=== PATIENT | female | born 2000 | race Caucasian/White ===

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

== ENCOUNTER → 2022-01-05 | Outpatient (CLI) | payer OTHER | END | disposition home or self-care (01) | LOC: CARD 01-04 09:30 | PROVIDERS: ATTEND Internal Medicine Cardiovascular Disease | DX: R01.1 Cardiac murmur, unspecified (principal); R06.00 Dyspnea, unspecified ==

== ENCOUNTER → 2024-01-18 | Outpatient (CLI) | payer OTHER ==
[2024-01-18 18:30] LABS: FREE T4 1.08 ng/dl (0.89-1.76); THYROXINE (T4) TOTAL 8.2 ug/dl (4.5-10.9)
== END | disposition home or self-care (01) ==
LOC: LAB 17:36
PROVIDERS: ATTEND Internal Medicine Endocrinology, Diabetes & Metabolism
DX: R63.4 Abnormal weight loss (principal)

== ENCOUNTER 2024-02-10 12:00 | Emergency (ER) | payer OTHER ==
[~2024-02-10] VITALS: Ht 160 cm; Wt 42.2 kg
[2024-02-10 12:51] LABS: BASO # 0.1 10*3/uL (0.0-0.1); BASO % 0.6 % (0.0-1.0); EOS # 0.1 10*3/uL (0.0-0.4); EOS % 0.9 % (1.0-4.0); HEMATOCRIT 41.1 % (37.0-47.0); LYMPH # 1.9 10*3/uL (1.3-4.4); LYMPH % 18.2 % (27.0-41.0); MEAN CORPUSCULAR HGB 31.3 pg (27.0-31.0); MEAN CORPUSCULAR HGB CONC 32.6 g/dl (33.0-37.0); MEAN PLATELET VOLUME 9.9 fl (9.6-12.3); MONO # 0.6 10*3/uL (0.1-1.0); MONO % 5.7 % (3.0-9.0); NEUT # 7.9 10*3/uL (2.3-7.9); NEUT % 74.4 % (47.0-73.0); PLATELET COUNT AUTOMATED 284 10*3/uL (130-400); RED BLOOD COUNT 4.28 10*6/uL (4.10-5.10); RED CELL DISTRI WIDTH 11.9 % (0-14.5); WHITE BLOOD COUNT 10.5 10*3/uL (4.8-10.8)
[2024-02-10 13:13] LABS: ALKALINE PHOSPHATASE 52 U/L (46-116); BETA-HCG, QUANT < 3.0 mIU/mL (3-10); BUN 10 mg/dl (9-23); CHLORIDE 105 mmol/L (98-107); POTASSIUM 3.9 mmol/L (3.4-5.1); SGPT/ALT 10 U/L (5-49); TOTAL PROTEIN 7.1 gm/dL (6.0-8.0)
[2024-02-11] MEDS ORDERED: ONDANSETRON4 MG SL (10:44)
== END 2024-02-10 13:49 | disposition home or self-care (01) ==
LOC: ED 12:00
PROVIDERS: Internal Medicine
DX: B34.9 Viral infection, unspecified (principal); Z20.822 Contact with and (suspected) exposure to COVID-19; Z98.890 Other specified postprocedural states; Z87.891 Personal history of nicotine dependence

== ENCOUNTER 2024-02-11 08:16 | Emergency (ER) | payer OTHER ==
[~2024-02-11] VITALS: Ht 160 cm; Wt 42.2 kg
[2024-02-11] MEDS ORDERED: Ondansetron Hydrochloride 4 MG/2 ML VIAL IV ONE (08:40)
[2024-02-11] MEDS ORDERED: SODIUM CHLORIDE 0.9% 1,000 ML IV ONE (08:40)
[2024-02-11 08:52] LABS: HEMATOCRIT 44.1 % (37.0-47.0); MEAN CELL VOLUME 94.2 fl (81.0-99.0); MEAN CORPUSCULAR HGB 31.4 pg (27.0-31.0); MEAN CORPUSCULAR HGB CONC 33.3 g/dl (33.0-37.0); MEAN PLATELET VOLUME 10.1 fl (9.6-12.3); PLATELET COUNT AUTOMATED 282 10*3/uL (130-400); RED BLOOD COUNT 4.68 10*6/uL (4.10-5.10); RED CELL DISTRI WIDTH 11.9 % (0-14.5); WHITE BLOOD COUNT 16.9 10*3/uL (4.8-10.8)
[2024-02-11 08:53] LABS: MANUAL DIFF REFLEX YES
[2024-02-11 09:02] LABS: ACT PARTIAL THROMBO TIME 24.9 SECONDS (20.0-32.1)
[2024-02-11 09:10] LABS: PLATELET SUFFICIENCY NORMAL (NORMAL); POLYCHROMASIA SLIGHT; TOTAL CELLS COUNTED 100 #CELLS; TOXIC GRANULATION SLIGHT; VACUOLATION OF NEUTROPHILS SLIGHT
[2024-02-11 09:15] LABS: ALKALINE PHOSPHATASE 54 U/L (46-116); BUN 14 mg/dl (9-23); CHLORIDE 104 mmol/L (98-107); LIPASE 56 U/L (12-53); POTASSIUM 4.1 mmol/L (3.4-5.1); SGPT/ALT 12 U/L (5-49); TOTAL PROTEIN 7.6 gm/dL (6.0-8.0)
[2024-02-11 09:17] LABS: ETHYL ALCOHOL < 3.0 mg/dl (<3)
[2024-02-11] MEDS ORDERED: ONDANSETRON4 MG SL (10:44)
== END 2024-02-11 11:00 | disposition home or self-care (01) ==
LOC: ED 08:16
PROVIDERS: Internal Medicine
DX: B34.9 Viral infection, unspecified (principal); R11.2 Nausea with vomiting, unspecified; Z98.890 Other specified postprocedural states

== ENCOUNTER → 2024-03-02 | Outpatient (CLI) | payer OTHER ==
[~2024-03-02] MED LIST changes: +ONDANSETRON4 MG SL
== END | disposition home or self-care (01) ==
LOC: US 01:55
PROVIDERS: ATTEND Nurse Practitioner Women's Health
DX: N93.9 Abnormal uterine and vaginal bleeding, unspecified (principal); N94.10 Unspecified dyspareunia

== ENCOUNTER 2025-09-21 15:32 | Emergency (ER) | payer SELFPAY ==
[~2025-09-21] VITALS: Ht 160 cm; Wt 49.9 kg
[2025-09-21 16:03] LABS: BILIRUBIN Negative (Negative); BLOOD Negative (Negative); CLARITY Clear (Clear); COLOR Yellow (Yellow); KETONE Negative (Negative); LEUKO ESTERASE Trace (Negative); NITRITE Negative (Negative); PH 5.5 (4.5-8.0); SPECIFIC GRAVITY 1.010 (1.001-1.030); UROBILINOGEN 0.2 E.U./dl (0.0-1.0)
[2025-09-21 16:29] LABS: BACTERIA 3+
== END 2025-09-21 17:47 | disposition home or self-care (01) ==
LOC: ED 15:32
PROVIDERS: Emergency Medicine
DX: R39.11 Hesitancy of micturition (principal); R82.71 Bacteriuria; F17.210 Nicotine dependence, cigarettes, uncomplicated; Z87.440 Personal history of urinary (tract) infections